=== PATIENT | male | born 1980 | race Two or more races ===

== ENCOUNTER 2024-08-31 09:49 | Outpatient (CLI) | payer OTHER | END 2024-08-31 10:00 | disposition home or self-care (01) | LOC: RAD 09:49 | PROVIDERS: ATTEND General Practice | DX: R22.1 Localized swelling, mass and lump, neck (principal); K11.8 Other diseases of salivary glands; D11.0 Benign neoplasm of parotid gland; S82.55XA Nondisplaced fracture of medial malleolus of left tibia, initial encounter for closed fracture | CPT/HCPCS: 73721 ==

== ENCOUNTER 2024-09-03 15:52 | Outpatient (CLI) | payer OTHER | END 2024-09-03 15:53 | disposition home or self-care (01) | LOC: SONOGRAMA 15:52 | PROVIDERS: ATTEND Pathology Anatomic Pathology & Clinical Pathology | DX: R59.0 Localized enlarged lymph nodes (principal); R22.1 Localized swelling, mass and lump, neck ==